=== PATIENT | female | born 1965 | race Caucasian/White ===

== ENCOUNTER 2018-05-27 05:51 | Emergency (ER) | payer OTHER ==
[2018-05-27] MEDS ORDERED: KETOROLAC 60 MG/2 ML VIAL IM STA (06:00)
[2018-05-27] MEDS ORDERED: ACETAMINOPHEN 500 MG TABLET PO STA (06:00)
--- NOTE | 2018-05-27 06:26 | ED Physician Documentation ---
PD HPI LOWER EXT INJURY - Stated complaint Stated Complaint: LT KNEE PAIN - Chief complaint Chief Complaint: Ext Problem - History obtained from History obtained from: Patient - History of Present Illness PD HPI LOW EXT INJURY LOCATION: Left Type of injury: Other (Riding stationary bike) Where injury occurred: Other (gym) Timing - onset: How many days ago (3) Timing - duration: Days (3) Timing - details: Gradual onset Pain level max: 3 Pain level now: 3 Severity Comments: mild Improved by: Rest, Ice, Immobilization Worsened by: Moving Associated symptoms: No: Weakness, Numbness, Tingling Review of Systems Ten Systems: 10 systems reviewed and negative Constitutional: reports: Reviewed and negative Eyes: reports: Reviewed and negative Ears: reports: Reviewed and negative Nose: reports: Reviewed and negative Throat: reports: Reviewed and negative Cardiac: reports: Reviewed and negative Respiratory: reports: Reviewed and negative GI: reports: Reviewed and negative : reports: Reviewed and negative Skin: reports: Reviewed and negative Musculoskeletal: reports: Reviewed and negative Neurologic: reports: Reviewed and negative Psychiatric: reports: Reviewed and negative Endocrine: reports: Reviewed and negative Immunocompromised: reports: Reviewed and negative PD PAST MEDICAL HISTORY - Past Medical History Past Medical History: Yes Cardiovascular: Hypertension Respiratory: None Endocrine/Autoimmune: None GI: None : None HEENT: None Psych: None Musculoskeletal: None Derm: None - Past Surgical History Past Surgical History: Yes /RN RADIATION: section, Hysterectomy - Present Medications Home Medications: Ambulatory Orders Medication Instructions Recorded Confirmed Atenolol 100 mg PO 11/12/12 11/12/12 Benazepril HCl [Lotensin] 40 mg PO 11/12/12 11/12/12 Hydrochlorothiazide 25 mg PO 11/12/12 11/12/12 Acetaminophen [Tylenol Extra 1,000 mg PO TID #60 tablet 05/27/18 Strength] Ibuprofen 800 mg PO TID #60 tablet 05/27/18 - Allergies Allergies/Adverse Reactions: Allergies Allergy/AdvReac Type Severity Reaction Status Date / Time Sulfa (Sulfonamide Allergy Edema Verified 05/27/18 06:01 Antibiotics) - Living Situation Living Situation: reports: With family Living Arrangement: reports: At home - Social History Does the pt smoke?: No Smoking Status: Never smoker Does the pt drink ETOH?: No Does the pt have substance abuse?: No - Family History Family history: reports: Other (Reviewed and not pertinent) - Immunizations Immunizations are current?: No - POLST Patient has POLST: No PD ED PE NORMAL - Vitals Vital signs reviewed: Yes - General General: Alert and oriented X 3, No acute distress - HEENT HEENT: PERRL - Neck Neck: Supple, no meningeal sign - Cardiac Cardiac: RRR, No murmur - Respiratory Respiratory: Clear bilaterally - Abdomen Abdomen: Normal bowel sounds, Soft, Non tender, Non distended - Derm Derm: Warm and dry - Extremities Extremities: No deformity, Other (Left knee exam with normal varus and valgus, normal Kaleigh, normal anterior and posterior drawer. Normal Lockman.) - Neuro Neuro: Alert and oriented X 3 - Psych Psych: Normal mood, Normal affect Results - Vitals Vitals: Vital Signs - 24 hr 05/27/18 05:58 Temperature 36.2 C L Heart Rate 86 Respiratory 18 Rate Blood Pressure 162/107 H O2 Saturation 96 Oxygen O2 Source Room air - Rads (name of study) Left knee Radiology: Final report received (Osteoarthritis) Departure - Departure Disposition: 65 Psych Hosp/Unit DC/Xfer Clinical Impression: Strain of left knee Qualifiers: Encounter type: initial encounter Qualified Code(s): S86.912A - Strain of unspecified muscle(s) and tendon(s) at lower leg level, left leg, initial encounter Osteoarthritis Qualifiers: Osteoarthritis location: knee Osteoarthritis type: unspecified Condition: Good Instructions: ED Sprain Knee, Osteoarthritis Follow-Up: Alba Renteria PA-C [Primary Care Provider] - Prescriptions: Acetaminophen [Tylenol Extra Strength] 1,000 mg PO TID #60 tablet Ibuprofen 800 mg PO TID #60 tablet Comments: Use rest, ice, compression, elevation for left knee pain. Take Tylenol and ibuprofen as prescribed for 14 days. Follow-up with PCP if symptoms do not improve for left knee MRI.
--- NOTE | 2018-05-27 06:39 | XRAY Report ---
Reason: Pain Procedure Date: 05/27/2018 Accession Number: [id number] / [id number] Procedure: XR - Knee 3 View LT CPT Code: FULL RESULT: EXAM: LEFT KNEE RADIOGRAPHY EXAM DATE: 05/27/2018 06:10 AM. CLINICAL HISTORY: Pain. COMPARISON: None. TECHNIQUE: 3 views. FINDINGS: Bones: Normal. No fractures or bone lesions. Joints: Osteoarthritis, worst in the medial femorotibial compartment. Soft Tissues: Normal. No soft tissue swelling. IMPRESSION: Severe left knee osteoarthritis. No evidence of acute fracture. RADIA
[2018-05-27 06:56] VITALS: BP 158/101
== END 2018-05-27 06:55 | disposition home or self-care (01) ==
LOC: ED 05:51
DX: S86.912A Strain of unspecified muscle(s) and tendon(s) at lower leg level, left leg, initial encounter (principal); X58.XXXA Exposure to other specified factors, initial encounter; Y93.A1 Activity, exercise machines primarily for cardiorespiratory conditioning; Y92.39 Other specified sports and athletic area as the place of occurrence of the external cause; I10 Essential (primary) hypertension; M17.12 Unilateral primary osteoarthritis, left knee
CPT/HCPCS: 73562; 96372; 99283; A9270

== ENCOUNTER 2021-06-29 10:42 | Outpatient (CLI) | payer OTHER ==
--- NOTE | 2021-06-29 12:06 | XRAY Report ---
PROCEDURE: Chest 2 View X-Ray INDICATIONS: ABN FINDINGS ON IMAGING TECHNIQUE: 2 view(s) of the chest. COMPARISON: X-ray chest, one view, 11/13/2012. FINDINGS: Surgical changes and devices: None. Lungs and pleura: Bilateral subpleural scars and atelectasis. There is increased pulmonary vasculari ty. No pleural effusions or pneumothorax. Mediastinum: Mediastinal contours are normal. Heart size is mild cardiac megaly. Bones and chest wall: No suspicious bony abnormalities. Soft tissues appear unremarkable. IMPRESSION: Mild cardiac megaly and increased pulmonary vascularity suggesting mild CHF. Reviewed by: Sarah Hilario MD on 06/29/2021 12:05 PM PST Approved by: Sarah Hilario MD on 06/29/2021 12:05 PM PST Station ID: [id number]
== END 2021-06-29 10:43 | disposition home or self-care (01) ==
LOC: DI.N 10:42
PROVIDERS: ATTEND Internal Medicine
DX: I51.7 Cardiomegaly (principal)

== ENCOUNTER 2022-10-18 07:54 | Outpatient (CLI) | payer OTHER | END 2022-10-18 07:55 | disposition home or self-care (01) | LOC: DI 07:54 | PROVIDERS: ATTEND Physician Assistant | DX: I08.1 Rheumatic disorders of both mitral and tricuspid valves (principal) | CPT/HCPCS: 93306 ==

== ENCOUNTER 2023-05-25 09:53 | Outpatient (CLI) | payer OTHER ==
--- NOTE | 2023-05-25 10:38 | Sleep Patient Instructions ---
Sleep Center Visit Summary - Patient Visit Information Reason for Visit: Initial consult for evaluation of sleep disordered breathing and other sleep issues. - Patient Instructions Instructions Attached: Sleep Study, Sleep Study Home Monitor Additional Instructions: You will be completing a sleep study, either an in-lab polysomnography (PSG) or home sleep study (HST). You will follow-up in the sleep care office after the sleep study is completed to hear the results and talk about therapy, if needed. You will be called by our office staff to schedule this appointment, but you may contact us with any questions. - Clinic Information Contact: [facility] [address] [place] [id number] [email or web address] T: [phone]
--- NOTE | 2023-05-25 10:44 | SLEEP CARE CONSULTATION ---
Information from patient questionnaire entered by Linda Seo. I have reviewed and concur with the information entered by Linda Seo. This document represents the service I personally performed and the decisions made by me, Jney Osborne ARNP. History of Present Illness Service Date and Time: 05/25/2023 0953 Reason for Visit: New patient Chief Complaint: reports: Other (BLOOD PRESSURE) Date of Onset: 15YRS Usual bedtime: 1130PM-12AM Time it takes to fall asleep: DEPENDS ON HOW TIRED I AM Snores at night: No Observed to quit breathing while asleep: No Sleeps alone due to snoring: No Number of times waking at night: MAYBE 1 Reasons for waking at night: reports: Bathroom. denies: Choking, Snoring, Gasping for air Toss, Turn, or Twitch while sleeping: No Recalls having dreams: No Usually gets out of bed at: 8AM Feels refreshed in the morning: Yes Morning headache: No Sleepy or fatigued during the day: No Ever fallen asleep while driving: No Takes day naps: Yes (couple times a month) Dreams during day naps: No Prior sleep studies: No Additional HPI information: I had the pleasure of seeing SANAM PETERS today regarding the possibility of her having a sleep disorder. Her current complaint is high blood pressure. She says she gets to bed about 11 or midnight but cannot got to sleep mainly because she is on her iPhone looking at texts, etc. She can fall asleep readily when she puts phone down and decides to sleep. She will get up about 1 time a night for the bathroom. She says no one has ever told her that she snores or has pauses in breathing. She feels that she is rested in the morning and her [place] is 5/24. She says she does not feel she has trouble sleeping but just needs to put her phone down. She has had high blood pressure for 15 years and her primary provider referred her here to see if she has sleeping issues contributing to her hypertension. She is morbidly obese. 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 Patient is / and lives in [place]. Have you smoked in the past 12 months: No Alcohol use: No Caffeine use: Yes Caffeine amount and frequency: 2 A WEEK Family History Family history of sleep disordered breathing: No Allergies and Home Medications Known drug allergies: Yes (sulfa in iron pills) Drug allergies reviewed: Yes Home medication list reviewed: Yes (as listed) Allergy and home medication list: Allergies Sulfa (Sulfonamide Antibiotics) Allergy (Verified 05/23/23 10:01) Edema pt states throat was closing last time she took sulfa Home Medications Medication Instructions Recorded Confirmed Last Taken Type Atenolol See Rx Instructions .ROUTE .COMPLEX 11/12/12 05/25/23 Unknown History Benazepril HCl [Lotensin] See Rx Instructions .ROUTE .COMPLEX 11/12/12 05/25/23 11/13/12 00:00 History Hydrochlorothiazide See Rx Instructions .ROUTE .COMPLEX 11/12/12 05/25/23 11/13/12 00:00 History Acetaminophen [Tylenol Extra 1,000 mg PO TID #60 tablet 05/27/18 05/25/23 Unknown Rx Strength] Ibuprofen 800 mg PO TID #60 tablet 05/27/18 05/25/23 Unknown Rx Review of Systems Weight gain over past 5 years: 10 Cardiovascular: reports: high blood pressure Respiratory: reports: shortness of breath Gastrointestinal: denies: heartburn Urinary: reports: frequency Neurological: denies: headaches Psychiatric: denies: anxiety, depression Ear/Nose/Throat: reports: wisdom teeth removed. denies: tonsillectomy Musculoskeletal: reports: joint pain Physical Exam Vital signs obtained and entered by: LINDA Jeffries MA Blood Pressure: 162/86 (LEFT ) Cuff size: wrist Heart Rate: 78 O2 Saturation: 94 Height: 5 ft 2 in Weight: 276 lb 12.8 oz Body Mass Index: 50.6 BMI Classification: Morbidly Obese Neck circumference: 16.5 Mouth and throat: narrow oropharynx Soft palate: normal Hard palate: Torus palatinus (small) Uvula: normal Uvula visualization: 50% Mallampati Class II Tongue: enlarged in size with teeth echevarria on lateral edges Tonsils: small Neck: normal w/o lymphadenopathy or thyromegaly Heart: regular rate and rhythm Lungs: clear bilaterally Impression and Plan 1. Suspected Obstructive Sleep Apnea-Hypopnea Syndrome, as suggested by a history of hypertension. She has risk factors including being over 50, neck measuring 16.5, morbidly obese and had hypertension. Narrow oropharynx and obesity are common predisposing factors for obstructive sleep apnea-hypopnea syndrome. I recommend proceeding to polysomnography to confirm the diagnosis and to assess severity. If the patient has significant sleep disordered breathing, a manual CPAP titration study will also be performed to find the optimal treatment pressure. I informed the patient of what the sleep studies involve and after some discussion, obtained agreement to proceed. The pathophysiology of obstructive sleep apnea-hypopnea syndrome was discussed with the patient and health risks of cardiovascular and cerebrovascular disease if not treated. Risks of drowsy driving discussed in detail and patient advised to avoid long distance driving and to chain puller at the first sign of drowsiness. Patient agreed to plan. * Schedule polysomnography * Avoid long distance driving or driving when feeling sleepy. * Avoid alcohol, sedative and muscle relaxant around bedtime. * Attempt to lose weight. * Review instructions provided by trained office staff on how to prepare for the sleep study. * Return for follow-up after sleep study completed. Counseling Topics: Weight loss health impact Plan: PSG/HST Visit Type: In Office Time Spent with Patient (minutes): 30 Provider Statement: I spent 100% of the Face to Face Visit with the patient with greater than 50% spent counseling the patient and coordination of care.
[2023-05-25 10:48] VITALS: BP 162/86; O2SAT 94
== END 2023-05-25 09:54 | disposition home or self-care (01) ==
LOC: SC 09:53
PROVIDERS: ATTEND Nurse Practitioner Family
DX: I10 Essential (primary) hypertension (principal); E66.01 Morbid (severe) obesity due to excess calories; Z68.43 Body mass index [BMI] 50.0-59.9, adult
CPT/HCPCS: 99203; 99212

== ENCOUNTER 2023-06-20 09:29 | Outpatient (CLI) | payer OTHER | END 2023-06-20 09:30 | disposition home or self-care (01) | LOC: SC 09:29 | PROVIDERS: ATTEND Nurse Practitioner Family | DX: G47.33 Obstructive sleep apnea (adult) (pediatric) (principal); R09.02 Hypoxemia; E66.01 Morbid (severe) obesity due to excess calories; Z68.43 Body mass index [BMI] 50.0-59.9, adult | CPT/HCPCS: 95806 ==

== ENCOUNTER 2023-06-29 14:47 | Outpatient (CLI) | payer OTHER ==
--- NOTE | 2023-06-29 15:26 | SLEEP CARE CONSULTATION ---
Information from patient questionnaire entered by Bruna Seo. I have reviewed and concur with the information entered by Bruna Seo. This document represents the service I personally performed and the decisions made by , Jeny Osborne ARNP. History of Present Illness Service Date and Time: 06/29/2023 144 Initial Peck Sleepiness Scale score: 5 (05/25/23) Current Peck Sleepiness Scale score: 1 (06/29/23) Additional HPI information: SANAM PETERS returns for follow up and results of the recently performed home sleep study. The sleep study showed severe obstructive sleep apnea with an average AHI of 30.3 and taylor oxygen saturation of 77%. I explained the pathophysiology behind obstructive sleep apnea. We then spent quite a bit of time discussing different treatment options. For mild obstructive sleep apnea, surgery and oral appliance are alternatives to nasal CPAP therapy but in moderate or severe cases, nasal CPAP is the most effective and reliable treatment. I reviewed the impact of weight changes on sleep apnea and strongly recommended losing weight. After some discussion, the patient would like to take some time to think about her decision. I advised her that CPAP is her best option for control of her sleep apnea due to how severe it is and she voiced understanding. Patient counseled not drink alcohol less than 4 hours before bedtime as it can increase snoring and apnea. Patient was cautioned about risks of drowsy driving until sleepiness symptoms resolve. Patient denies drowsy driving. Sleep Study - Results Type of Sleep Study: Home sleep study (COMPLETED 06/20/23) Prior sleep studies: No Polysomnography/Home Sleep Study results: Physician Impression: The quality of the study is good. The length of the study is adequate (> 240 minutes). Please also see the tabulated and graphic data. 1. Obstructive Sleep Apnea-Hypopnea (ICD-10 G47.33), severe, with an AHI of 30. 3/hr and taylor SaO2 of 77%. During the study, the patient had 66 apneas (66 obstructive, 0 central, 0 mixed) and 136 hypopneas. The longest episode lasted 71.5 seconds. The respiratory events occurred slightly more frequently during supine sleep (supine AHI was 39.4 and non-supine, 28.77). 2. Hypoxemia (ICD-10 R09.02), moderate, with the lowest oxygen saturation of 77 % and 168.4 minutes with SaO2 under 90%. Baseline oxygen saturation was normal (Average oxygen saturation was 90%). Allergies and Home Medications Known drug allergies: Yes (sulfa) Drug allergies reviewed: Yes Home medication list reviewed: Yes (no changes) Allergy and home medication list: Allergies Sulfa (Sulfonamide Antibiotics) Allergy (Verified 06/27/23 14:07) Edema pt states throat was closing last time she took sulfa Review of Systems Review of systems same as previous: Yes (NO CHANGE) Physical Exam Vital signs obtained and entered by: BRUNA Jeffries MA Blood Pressure: 146/86 (RIGHT) Cuff size: wrist Heart Rate: 78 O2 Saturation: 94 Height: 5 ft 2 in Weight: 280 lb 9.6 oz Body Mass Index: 51.2 BMI Classification: Morbidly Obese Impression and Plan 1. Obstructive Sleep Apnea-Hypopnea Syndrome, severe, with lowest oxygen saturation of 77%. Positive pressure therapy could benefit hypertension. As mentioned above, the patient was advised to try CPAP therapy. She asked to be able to think about her options and will call once she has made a decision on which therapy she would like to go with. I advised her that we need to hear back from her soon and she voiced understanding. 2. Hypoxemia, moderate, with a taylor oxygen saturation of 77% and 168.4 minutes spent under 90%. The baseline oxygen saturation was normal with an average oxygen saturation of 90%. 3. Morbid Obesity, unspecified. Currently patients BMI is 51.2. Obesity increases the risk of apnea, CPAP pressure requirements and overall health risks especially cardiovascular and diabetes. Thus patient is advised to lose weight. * She will call with decision on therapy * Attempt to lose weight. * Avoid alcohol consumption near bedtime. * The patient is again cautioned about driving until sleepiness completely resolves. * Return for followup will be determined based on her choice of therapy. Counseling Topics: Weight loss health impact Follow up with Sleep Care in: other (once patient has decided to go forward) Visit Type: In Office Time Spent with Patient (minutes): 22 Provider Statement: I spent 100% of the Face to Face Visit with the patient with greater than 50% spent counseling the patient and coordination of care.
[2023-06-29 15:31] VITALS: BP 146/86; O2SAT 94
== END 2023-06-29 14:48 | disposition home or self-care (01) ==
LOC: SC 14:47
PROVIDERS: ATTEND Nurse Practitioner Family
DX: G47.33 Obstructive sleep apnea (adult) (pediatric) (principal); R09.02 Hypoxemia; E66.01 Morbid (severe) obesity due to excess calories; Z68.43 Body mass index [BMI] 50.0-59.9, adult
CPT/HCPCS: 99212; 99213

== ENCOUNTER 2024-01-16 14:32 | Outpatient (CLI) | payer OTHER ==
--- NOTE | 2024-01-17 09:59 | Mammography Report ---
BILATERAL DIGITAL SCREENING MAMMOGRAM 3D/2D: 01/16/2024 CLINICAL: Routine screening. Comparison is made to exams dated: 10/28/2015 mammogram and 09/01/2014 mammogram - [facility]. The breasts are almost entirely fatty (category a/<25% glandular tissue). No significant masses, calcifications, or other findings are seen in either breast. There has been no significant interval change. IMPRESSION: NEGATIVE There is no mammographic evidence of malignancy. A 1 year screening mammogram is recommended. Based on the Tyrer Cuzick model (a risk assessment model) the patient's lifetime risk is 4.4% and her 10 year risk is 1.7%. According to the ACR, ACS, and NCCN guidelines, an annual breast MRI exam cheryl g with mammogram is recommended if the patient's lifetime risk is 20% or greater. This exam was interpreted at Station ID: [id number]. NOTE: For mammograms, a report in lay terms will be sent to the patient. Approximately 15% of breast malignancies will not be visualized mammographically. In the management of a palpable breast mass, a negative mammogram must not discourage biopsy of a clinically suspicious lesion. Electronically Signed By: Annette clancy/francisco j:01/16/2024 17:32:40 letter sent: No_Letter ACR BI-RADS Category 1: Negative 3341F PARENCHYMAL PATTERN: (F) - The breast(s) demonstrate(s) diffuse fatty replacement. BI-RADS CATEGORY: (1) - 1 RECOMMENDATION: (ANNUAL) - Recommend routine annual screening mammography. [id number] 1 year screening LATERALITY: (B)
== END 2024-01-16 14:33 | disposition home or self-care (01) ==
LOC: DI.N 14:32
PROVIDERS: ATTEND Student in an Organized Health Care Education/Training Program
DX: Z12.31 Encounter for screening mammogram for malignant neoplasm of breast (principal)